=== PATIENT | female | born 1955 | race Caucasian/White ===

== ENCOUNTER 2016-08-29 06:33 | Day surgery (SDC) | payer MEDICARE, OTHER ==
[2016-08-29] VITALS (8 sets, daily range): BP systolic 99–132; BP diastolic 64–77; PULSE 58–126; RESP 14–17; O2SAT 91–100
[~2016-08-29] VITALS: Ht 175.3 cm; Wt 65.8 kg
[~2016-08-29 06:33] MED LIST: CELE200C PO; CHOL10008 PO; CITA40TA13 PO; Clindamycin 900 mg/50 mL D5W IV ONE; FURO-128 PO; Lactated Ringer's 1,000 ML IV SCH; MULT-1018 PO; NADO20TA PO
[2016-08-29] MEDS ORDERED: Propofol 10,000 mCg/mL 20 mL Inj ONE (06:34)
[2016-08-29] MEDS ORDERED: Dexamethasone 4 mg/mL Inj ONE (06:34)
[2016-08-29] MEDS ORDERED: Ondansetron 2 mg/mL 2 mL Inj ONE (06:34)
[2016-08-29] MEDS ORDERED: Ketamine 10 mg/mL 20 mL Inj ONE (06:34)
[2016-08-29] MEDS ORDERED: Clindamycin 900 mg/50 mL D5W Premix IV ONE (06:34)
[2016-08-29] MEDS ORDERED: fentaNYL-PF 50 mCg/mL 2 mL Inj ONE (06:34)
[2016-08-29] MEDS ORDERED: Lactated Ringer's 1,000 ML IV ONE (06:59)
--- NOTE | 2016-08-29 07:22 | PCM.HPANE ---
Patient Data Surgeon Admitting Provider: Attending Provider:Venu Day MD Primary Care Physician:Wan Stanley Other Provider:Tristen Connolly Anesthesia Reason for Visit Ruptured Implant Ht/WT & BMI Height (Feet): 5 Height (Inches): 9.00 Weight (Kilograms): 65.800 Body Mass Index 21.00 Allergies Coded Allergies: No Known Allergies (Unverified Allergy, Unknown, 09/11/15) Past Anesthesia History Anesthesia History: Denies:: Abnormal Airway, Anesthesia Reactions, Difficult Intubation Diabetes History Hx Diabetes?: No MRSA MRSA: No Medications Hypertension Medication: No Home Meds Incl Beta Chela: Yes (nADOLOL) Date Beta Chela Taken: Aug 29, 2016 Time Beta Chela Taken: 0545 Reported Medications Nadolol 20 Mg [id number] Mg PO DAILY 30 Days Ref 0 08/27/16 Furosemide (Lasix)40 Mg Ybuqcw62 Mg PO DAILY 30 Days Ref 0 08/27/16 Multivitamin (Multi Vitamin Daily)1 Each Tablet1 Each PO DAILY 30 Days Ref 0 08/27/16 Citalopram 40 Mg Pnijau90 Mg PO DAILY 30 Days Ref 0 08/27/16 Cholecalciferol (Vitamin D3) (Vitamin D3)1,000 Unit Tab.chew2,000 Unit PO DAILY 08/27/16 Celecoxib (Celebrex)200 Mg Aevheea006 Mg PO DAILY #30 CAPSULE Ref 0 08/27/16 Discontinued Reported Medications [Lisinopril] No Conflict Check10 Mg PO DAILY 04/14/12 [Verapamil] No Conflict [id number] Mg PO DAILY 04/14/12 Furosemide-Expunged Drug, Do Not Renew! (Lasix-Expunged Drug, Do Not Renew!)20 Mg Fjlaok86 Mg PO DAILY 04/14/12 [Promethazine] No Conflict Check25 Mg PO 1-2XD 04/14/12 ClonazePAM-Expunged Drug, Do Not Renew! 1 Mg Tablet1 Mg PO 1-2XD 04/14/12 Escitalopram-Expunged Drug, Do Not Renew! (Lexapro-Expunged Drug, Do Not Renew!) 20 Mg Zhsofc91 Mg PO BID 1/2 TABLET BID 04/14/12 [Percocet] No Conflict Check10 Mg PO Q4 04/14/12 [Flexaril] No Conflict Check10 Mg PO Q8 9/4/12 [Oxycondone] No Conflict Check30 Mg PO PRN 04/14/12 History HEENT History: Denies:: Abnormal Airway Cataracts Difficult Intubation Dysphagia Glaucoma Hearing Problem Sinus Problem TMJ Denture Type: Full- Upper Full- Lower Cardiovascular History: Denies:: AICD Abdominal Aortic Aneurism Chest Pain Congestive Heart Failure Coronary Artery Disease Edema Heart Murmur Hypertension Irregular Heartbeat Pacemaker Hx of Respiratory Problem?: No Respiratory History: Denies:: Asthma COPD Cough Emphysema Oxygen Administration Pneumonia Tuberculosis Use of C-PAP Machine (sleep study done no CPAP recommended) Use of Inhalers / NEBS Hx Neurologic Problems?: No Neurological History: Denies:: Alzheimer's Disease CVA Headaches Multiple Sclerosis Parkinson's Disease Seizures TIA Hx of GI Problems?: No Gastrointestinal History: Denies:: Cirrhosis Gastroesphageal Reflux Gastrointestinal Bleeding Heartburn Liver Disease Hx of Problems?: No Genitourinary History: Denies:: Kidney Stones Urinary Tract Infection Female Hx: Positive for:: Problems with Breasts? (bilateral ruptured implants , current admission problem) Denies:: Currently Skin History: Denies:: History Skin Disorders? Pressure Ulcers Hx Musculoskeletal Problems?: Yes Musculoskeletal History: Positive for:: Back Injury (hx of four spinal surgery ) Degenerative Joint Joint Replacement (bilateral knees) Osteoarthritis Denies:: Myasthenia Gravis Rheumatoid Arthritis Systemic Lupus Hx of Psycho/Social Problems?: Yes Psycho Social History: Positive for:: Anxiety Hx Depression Hx Surgeries?: Yes (spine surgeries, breast implants, knee replacement, sinus) Hx Any Other Health Problems?: Yes Other History: Denies:: Cancer Thyroid Disease History Blood Transfusions: Positive for:: Accept Blood Products? Denies:: Blood Transfuse Reaction Blood Transfusions Hx Diabetes: No Hx Alcohol Use: YesAlcoholic Drinks Per Day: one to two dailyHx Substance Use : NoHave You Smoked inLast 12 mo: Yes (quit 2002) Stop/Bang Treated for Sleep Apnea?: No Do You Have a CPAP Machine?: No S-Snoring: Do You Snore Loudly: No T-Tired: feel tired, fatigued: No O-Obsered: Observed not breath: No P-Blood Pressure: treated: No B- Body Mass Index > 35 kg/m2: No A- Age over 50: Yes N- Neck Large Circumference: No G- Gender Male: No KYMBERLY Total Score: 1 KYMBERLY Risk Assessment: Low Risk, <3 Yes Risk Assessment Category Category 1A: Patient has history of documented sleep apnea, and HAS NOT received any narcotic, sedative or anesthesia administration during this stay. Category 1B: Patient has history of documented sleep apnea, and HAS received any narcotic , sedative or anesthesia administration during this stay Category 2: Patient has SUSPECTED Obstructive Sleep Apnea, and HAS received any narcotic , sedative or anesthesia administration during this stay. Category 3: Patient has SUSPECTED Obstructive Sleep Apnea and HAS NOT received narcotic, sedative or anesthesia administration during this stay. Category 4: Outpatient in Procedural Areas with known sleep apnea or who screen positive for High Risk via the STOP/BANG questionnaire. Exam Exam Vital Signs Vital Signs Date Time Temp Pulse Resp B/P Pulse Ox O2 Delivery O2 Flow Rate FiO2 08/29/16 07:16 36.4 58 14 132/74 100 Room Air General Appearance: Alert, Oriented X3, Cooperative, No Acute Distress HEENT/AIRWAY: MP 2 Lungs: Clear to Auscultation, Normal Air Movement Heart: Exam Unremarkable, Regular Rate/Rhythm, No Murmurs/Rubs/Gallops Meds/Labs/Diagnostics Admission Meds Current Medications Lactated Ringer's (Lr) 1,000 ml @ ud STK-MED ONCE IV Last administered on 08/29t 06:59; Start 08/29/16 at 06:59; Stop 08/29/16 at 07:00; Status DC Plan Impression Patient chart reviewed, patient interviewed and anesthestic plan with risks, benefits, and alternatives discussed, and informed consent obtained. NPO Status: 08/28@2100, WATER W AM rX ASA Physical Status: ASA1 Normal Healthy Anesthetic Plan: GA Bene/Risks/Altern/Consents: Yes HP Complete Prior to Induction: Yes Jeffrey Bautista MD Aug 29, 2016 07:22
[2016-08-29] MEDS ORDERED: Lactated Ringer's 1,000 ML IV SCH (09:06)
[2016-08-29] MEDS ORDERED: Lactated Ringer's 500 ML IV PRN (09:06)
[2016-08-29] MEDS ORDERED: fentaNYL-PF 50 mCg/mL 2 mL Inj IVPUSH PRN (09:10)
[2016-08-29] MEDS ORDERED: Phenylephrine 10,000 mCg/mL Inj IVPUSH PRN (09:10)
[2016-08-29] MEDS ORDERED: MetoCLOpramide 5 mg/mL 2 mL Inj IVPUSH PRN (09:10)
[2016-08-29] MEDS ORDERED: HYDROmorphone 1 mg/mL Inj IVPUSH PRN (09:10)
[2016-08-29] MEDS ORDERED: EPHEDrine Sulfate 50 mg/mL Inj IVPUSH PRN (09:10)
[2016-08-29] MEDS ORDERED: Dexamethasone 4 mg/mL Inj IVPUSH PRN (09:10)
[2016-08-29] MEDS ORDERED: Ondansetron 2 mg/mL 2 mL Inj IVPUSH PRN (09:10)
[2016-08-29] MEDS ORDERED: Bacitracin 50,000 unit Inj IRRIGATION ONE (09:52)
[2016-08-29] MEDS ORDERED: oxyCODONE-Acetamin 10-325 mg Tablet PO PRN (12:25)
--- NOTE | 2016-08-29 13:33 | PCM.ANEP1 ---
Post Anesthesia Phase 1 PACU Phase 1 Assessment Vital Signs Vital Signs Date Time Temp Pulse Resp B/P Pulse Ox O2 Delivery O2 Flow Rate FiO2 08/29/16 13:30 36.4 58 16 103/68 96 Room Air 08/29/16 13:04 36.7 69 16 126/70 91 Room Air 08/29/16 12:45 126 17 126/73 96 Nasal Cannula 2 08/29/16 12:40 65 14 101/66 93 Nasal Cannula 4 08/29/16 12:35 70 15 99/77 95 Nasal Cannula 4 08/29/16 12:30 36.6 66 17 107/64 97 Nasal Cannula 4 08/29/16 07:16 36.4 58 14 132/74 100 Room Air Anesthetic Administered: GA Level of Alertness: Awake, talking GRAY's with Equal Strength: Yes Pain: No Nausea or Vomiting: No Lungs: Clear to Auscultation, Normal Air Movement Dermatome Level: Full Sensation Jeffrey Bautista MD Aug 29, 2016 13:33
--- NOTE | 2016-08-29 14:38 | PCM.ANEP2 ---
Post Anesthesia Evaluation ASA/CMS Post Anesthesia VS in Patient's Normal Range?: Yes Resp Stable; Airway Patent?: Yes CV Function & Hydration Stable: Yes Mental Status Recovered?: Yes Pain control Satisfactory?: Yes N/V Control Satisfactory?: Yes Jeffrey Bautista MD Aug 29, 2016 14:38
--- NOTE | 2016-09-03 06:41 | OP ---
[address] [address] OPERATIVE REPORT PATIENT: RADHA RODRIGUEZ : 1955 MR#: [id number] ADMIT: 08/29/2016 JOB ID: [id number] DATE OF SURGERY: 08/29/2016 SURGEON: Venu Day MD. PREOPERATIVE DIAGNOSIS(ES): 1. Right ruptured silicone breast implant. 2. Right capsular contracture. 3. Left capsular contracture. POSTOPERATIVE DIAGNOSIS(ES): 1. Right grade 4 capsular contracture. 2. Right ruptured silicone implant. 3. Left intact silicone implant. 4. Left capsular contracture. PROCEDURES: 1. Excision of right ruptured silicone implant with extracapsular silicone material. 2. Right capsulectomy. 3. Removal of left intact silicone implant. 4. Left periprosthetic capsulectomy. 5. Immediate placement of right saline implant after capsulectomy. 6. Immediate placement of left saline implant after left capsulectomy. BRUSH MAKER: None. ANESTHESIA: General anesthesia. ESTIMATED BLOOD LOSS: 20 cc. COMPLICATIONS: None apparent. IMPLANT: Bilateral Allergan style 68 moderate profile saline implant filled to 360 cc bilaterally. DRAINS: None. INDICATIONS FOR PROCEDURE: This is a 61-year-old female patient with a remote history of bilateral breast silicone prosthesis placement. Patient has documented rupture of both implants. Patient also has bilateral grade 4 capsular contracture. At this point, removal of bilateral implants as well as extracapsular silicone material and capsulectomy are indicated. The patient would like to have replacement of saline implants in a submuscular pocket. The procedures are indicated. PROCEDURE/FINDINGS: The patient was identified in the preoperative area. Surgical sites were marked. With the patient in a sitting position, I marked the patient's midline. Inframammary folds were also marked. The desired location of the inframammary incisions were also marked. Patient was then taken back to the operating room and placed supine on the operating table. Appropriate time-outs were taken. General anesthesia was induced smoothly. Patient was then prepped and draped in the usual sterile manner. I first turned my attention to the right breast. An inframammary incision was made that is approximately 8 cm in length. It started from approximately 1 cm medial to the breast meridian laterally. This was done with a #10 blade. I then deepened the incision down through the breast tissue down to the underlying periprosthetic capsule. The periprosthetic capsule was found to be thickened and calcified. I then proceeded to elevate the soft tissue off of the capsule. There are several areas of extracapsular silicone. These mostly form the small silicone granulomas. These were mostly around the inferior and lateral aspect of the capsule at the reflection of the anterior and posterior capsule. There is some extracapsular silicone at the superior surface. There is also a large area of capsular rupture and bulging at the inferomedial aspect of the capsule approximately at the four o'clock. I proceeded to elevate the soft tissue off of the capsule circumferentially. After approximately 75% of the capsule had been elevated and freed, I delivered the implant and the capsule through the incision down to the abdominal surface. This allowed me to access the superior aspect of the capsule. I then proceeded to elevate the soft tissue off of the capsule entirely. There is a silicone implant and the capsule was passed off to Pathology as a specimen. Hemostasis was obtained with electrocautery. The pocket was then irrigated with copious amounts of antibiotic solution. Once this had been done, I proceeded to use electrocautery to identify the lateral edge of the pectoralis major muscle. I then bluntly accessed the subpectoral plane. I then used electrocautery and blunt dissection to elevate the subpectoral plane all the way up to the clavicle. The inferior costal attachment of the pectoralis major muscle was then incised through with electrocautery. This allowed me to proceed with a dual-plane type of augmentation. Once this has been done, the skin flap and breast tissue was gently replaced back down to the surgical site. I used a marker to crescencio the lateral border of the pectoralis major muscle. Once this has been done, the corresponding location on the skin flap was also marked. Using several 3-0 Vicryl tjzhco-gi-pxbfc sutures, the lateral edge of the pectoralis major muscle was sutured to the underside of the breast tissue, essentially closing off of the subglandular pocket. Once this has been done. An Allergan style 68 moderate profile saline implant was obtained. Air was removed. A leak was checked. The implant was then filled to 60 cc. Again, excess air was removed as much as I can. The implant was then inserted into the subpectoral pocket. Once this has been done, several 3-0 Vicryl ppjqox-ny-gerbf sutures were then placed along the deep breast capsule superiorly and along the inframammary fold inferiorly. These were left untied. Once the sutures were placed, the implant was filled to 360 cc. The fill tube was removed and the valve was checked to make sure it was lying smoothly. The 3-0 Vicryl sutures were then tied down. A layer of 3-0 Vicryl simple interrupted sutures were then placed in the superficial subcutaneous tissue. A layer of 3-0 Monocryl deep dermal suture was then placed followed by 4-0 Monocryl running subcuticular suture. I then turned my attention to the left breast. Again, an 8 cm incision was made along the inframammary fold. Incision was made with a #10 blade and deepened down to the underlying periprosthetic capsule. It was noted that the capsule has some calcification but was overall quite thin. I was able to bluntly dissect the capsule off of the breast tissue almost entirely. There was no extracapsular rupture of the silicone. Once this has been done circumferentially, the implant and the capsule were removed from the surgical site and passed off Pathology as a specimen. Hemostasis was obtained with electrocautery. Again, the subpectoral plane was accessed 1st with electrocautery. A subpectoral pocket was then developed bluntly with finger dissection and sharply with electrocautery up to the level of the clavicle. The costal attachment of the pectoralis major muscle was divided 1 cm above the inframammary fold. Once this has been done, the pocket was rinsed with antibiotic solution. The lateral edge of the pectoralis major muscle was then sutured to the breast tissue closing off the subglandular pocket. An Allergan style 68 moderate profile implant was then obtained. Air was removed. It was then filled to 60 cc and placed into the subpectoral pocket. Several 3-0 Vicryl joncki-fx-qepwj sutures were then placed from the deep breast capsule to the inframammary fold. Once these had been placed and left untied, the implant was filled to 360 cc. The fill tube was removed. The valve was checked and was found to be seated correctly. The Vicryl sutures were then tied down. A layer of 3-0 Vicryl simple interrupted sutures were then placed in the subcutaneous tissue. A layer of 3-0 Monocryl deep dermal sutures were placed, followed by 4-0 Monocryl running subcuticular suture. The patient tolerated the procedure well. Needle count, sponge count, instrument counts were correct at the end of the procedure. Patient was extubated and transported to recovery in stable condition. JENNY
--- NOTE | 2016-09-03 11:39 | PATH ---
SURGICAL PATHOLOGY Attending Physician:Venu Day CASE STATUS: Signed Out PATIENT NAME: RADHA RODRIGUEZ PID: [id number] : 1955 DATE COLLECTED:08/29/2016 21:01 SPECIMEN: 1: Breast, Implant 2: Breast, Implant CLINICAL HISTORY: BILATERAL RUPTURED SILICONE IMPLANTS AND BILATERAL CAPSULE CONTRACTURE 1). RIGHT RUPTURED SILICONE IMPLANT AND CAPSULE 2). LEFT RUPTURED SILICONE IMPLANT AND CAPSULE FINAL DIAGNOSIS: 1. Right Breast Silicone Implant with Fibrous Capsule, Focally Calcified. 2. Left Breast Silicone Implant with Fibrous Capsule, Focally Calcified. ICD10: [id number] GROSS DESCRIPTION: The specimens are received in formalin, labeled with the patient's name, and sublabeled as the following: (1) right ruptured silicon breast implant + capsule; (2) not sublabeled. (1) The specimen consists of a breast implant which includes a clear plastic silicone filled breast implant encased in fibrous breast capsule (321 g, 12.5 x 10.5 x 4.7 cm). A scant amount of adipose tissue is present. The implant is ruptured. The implant does not contain any identifying features. The capsule is diffusely mineralized weight focal thinning. No nodules, masses or lesions are identified. Section code: (1A, 1B) breast capsule, help desk representative. (2) the specimen consists of an intact clear plastic silicone filled breast implant (300 g, 13.0 x 13.0 x 2.0 cm) and a separate fibrous breast capsule (22.3 grams, and 9.5 x 6.8 x 1.5 cm). A scant amount of adipose tissue is present. The implant does not contain any identifying features. The capsule is diffusely thin and focally mineralized. No nodules, masses or lesions are identified. Section code: (2A, 2B) breast capsule, represented. 08/31/16 ICD-9 CODES: CPT CODES: 37366, 65347 Electronically Signed Out José Em MD [facility] [address], [place] [address] Technical component performed at [facility], [address] [place] [address] [address], [place], [address]
== END 2016-08-29 23:59 | disposition home or self-care (01) ==
LOC: SAS 06:33
PROVIDERS: ATTEND Plastic Surgery
DX: T85.44XS Capsular contracture of breast implant, sequela (principal); T85.49XS Other mechanical complication of breast prosthesis and implant, sequela; I10 Essential (primary) hypertension; G89.29 Other chronic pain; M54.5 Low back pain
CPT/HCPCS: 19340; 19371; J1100; J1170; J2250; J2405; J7120

== ENCOUNTER 2016-12-07 22:34 | Emergency (ER) | payer MEDICARE, OTHER ==
[~2016-12-07] VITALS: Ht 175.3 cm; Wt 68.2 kg
[~2016-12-07 22:34] MED LIST changes: -Clindamycin 900 mg/50 mL D5W IV ONE; -Lactated Ringer's 1,000 ML IV SCH
[2016-12-07 22:47] VITALS: BP 149/96; PULSE 86; RESP 18; O2SAT 92
--- NOTE | 2016-12-07 23:40 | ED.REPORT ---
HPI-General Illness Date of Service Dec 07, 2016 ED Provider: Maulik Sullivan MD Patient is a 61 year old female with a history of hypertension and depression on Citalopram who presents to the ED via EMS after she experienced jaw tightening at 6pm this evening. The patient states that she was out to dinner when the symptoms started. Her jaw became tighter and tighter after symptoms onset and she was unable to unclench it. When she got home she noticed that her jaw appeared clenched on the right side. Her pain is now resolved. Patient admits to drinking alcohol with dinner tonight. EMS also found her blood pressure to be 200/112 on arrival. She was found to be at 92% on room air and was placed on a nasal cannulae, appearing to have difficulty breathing. Patient denies a history of COPD, emphysema, shortness of breath, or chest pain. She states that her mother several months ago. She is a former smoker. The patient admits to recently trying CBD oil for the first time last week, but has not used in the past 3 days. She has not recently changed any of her other medications. Nursing Notes Stated Complaint: HIGH BLOOD PRESSURE, CLENCHED JAW Chief Complaint: General Complaint Nursing Notes Reviewed: Yes Allergies: Coded Allergies: No Known Allergies (Unverified Allergy, Unknown, 12/07/16) Scheduled Celecoxib (Celebrex) 200 Mg Capsule 200 MG PO DAILY Cholecalciferol (Vitamin D3) (Vitamin D3) 1,000 Unit Tab.chew 2,000 UNIT PO DAILY Citalopram (Citalopram) 40 Mg Tablet 40 MG PO DAILY Furosemide (Lasix) 40 Mg Tablet 40 MG PO DAILY Multivitamin (Multi Vitamin Daily) 1 Each Tablet 1 EACH PO DAILY Nadolol (Nadolol) 20 Mg Tablet 20 MG PO DAILY General Time Seen by : 22:59 Chief Complaint Other (jaw pain) Hx Obtained From: Patient Arrived By: Ambulance Sudden in Onset?: Yes Onset Occurred: 5 - 8 hours ago Symptom Duration: Since onset Location: : Face (jaw pain) Severity: Current: No pain currently Severity: Maximum: Moderate Recent Healthcare: No recent doctor visit, No recent hospitalization Similar Sx Previous: No Past Medical History Past Medical History Anxiety Depression Osteoarthritis Degenerative Joint Disease Reports: Hypertension, Denies: COPD Past Surgical History breast implants knee replacements sinus surgery Reports: Back/neck surgery Smoking History Former Smoker Social History Alcohol Use: "Social" Other Social History: Good social support, , Local resident Ambulatory Status Independent Review of Systems +jaw pain Full Review of Systems Respiratory: Denies: Non-productive cough, Shortness of breath Cardiovascular: Denies: Chest pain, Palpitations Complete sys rev & neg: except as marked. Physical Exam Vital Signs Vital Signs Date Time Temp Pulse Resp B/P Pulse Ox O2 Delivery O2 Flow Rate FiO2 12/08/16 00:32 72 16 139/93 92 Room Air 12/07/16 22:47 36.9 86 18 149/96 92 Room Air Initial VS: Reviewed, Vital signs abnormal Skin: Warm, Dry, No cyanosis Psychiatric: Mood/affect normal, Behavior normal, Normal thought content General/Constitutional: Awake, Alert, No acute distress Head / Eyes: Normocephalic, PERRL, EOMI ENT: Airway patent hoarse voice Neck: Supple, Full range of motion, Non-tender Respiratory / Chest: Breath sounds NL, Breath sounds = bilat, No respiratory distress, No rales, No rhonchi, No wheezing Cardiovascular: Heart rate NL, Regular rhythm, Heart sounds NL, No murmurs Upper Extremities Upper Extremity / MS: Full range of motion, No deformity, Neurologic intact, Vascular intact Lower Extremity / Pelvis / MS: Full range of motion, No deformity, Neurologic intact, Vascular intact Neurologic: Oriented X3, Speech NL, No motor deficits, No sensory deficits No current dystonic abnormalities or other abnormal movements. Interpretation & Diagnostics ECG Interpretation ECG Interpretation: Sinus rhythm, Rate 70 Probable left ventr hypertrophy Time: 22:48 Re-Eval/Medical Decision Med Decision/Clinical Course 61-year-old female with an episode of jaw dystonia likely secondary to citalopram. Recommend Benadryl as needed for recurrent symptoms and gradual taper off citalopram directed by primary physician. Source of Hx: Old records Time of Eval: 23:47 Re-Evaluation/Progress Note: Spoke with the patient further about her medications. Citalopram has been known to cause jaw tightening. She will need to taper off her medication. Time of Eval: 00:05 Patient Status: Condition improved Re-Evaluation/Progress Note: Patient understands and agrees with the plan to be discharged home. Discharge instructions and follow-up discussed. All questions were addressed. Return to the ED warnings given. Counseled Regarding: Diagnosis, Need for follow-up, When/why to return to ED Discharge & Departure Primary Impression: Dystonia Additional Impression: Adverse drug effect Encounter type: initial encounter Qualified Code: T88.7XXA - Unspecified adverse effect of drug or medicament, initial encounter Disposition: Home Discharge Condition All VS Reviewed: Yes Condition: Stable Patient Instructions: Citalopram (By mouth) Additional Instructions: The jaw tightness that you had is called dystonia and it was likely due to your citalopram. Recommend that you taper off the citalopram by 20 mg every 2 weeks. Your dose for tomorrow should be 60 mg. Talk to your prescribing provider about that plan. If you have recurring jaw symptoms use diphenhydramine (Benadryl) 25-50 mg. Call me at [phone] between the hours of 9 PM and 6 AM for the next couple of nights if you have any concerns. Referrals: Darius Barreto Attestation Portions of this note were transcribed by Parris Blevins. I, Dr. Sullivan personally performed the history, physical exam and medical decision-making; I reviewed and confirmed the accuracy of the information in the transcribed note. Signed by: Dilan Givens, 12/08/2016 0010 copies to: Darius Barreto Howard L MD Dec 07, 2016 23:40 Parris Blevins Dec 07, 2016 23:48
[2016-12-08 00:32] VITALS: BP 139/93; PULSE 72; RESP 16; O2SAT 92
== END 2016-12-08 00:31 | disposition home or self-care (01) ==
LOC: SED 22:34
DX: G24.09 Other drug induced dystonia (principal); R68.84 Jaw pain; T43.225A Adverse effect of selective serotonin reuptake inhibitors, initial encounter; Y93.89 Activity, other specified; Y92.89 Other specified places as the place of occurrence of the external cause; Y99.8 Other external cause status; F10.129 Alcohol abuse with intoxication, unspecified; I10 Essential (primary) hypertension; Z87.891 Personal history of nicotine dependence

== ENCOUNTER 2017-02-10 11:16 | Day surgery (SDC) | payer MEDICARE ==
[~2017-02-10] VITALS: Ht 175.3 cm; Wt 68.0 kg
[~2017-02-10 11:16] MED LIST changes: +0.9% Sodium Chloride 1,000 ML IV SCH; +LACT10SO PO; +MONT10TA23 PO; -MULT-1018 PO; +Sodium Chloride LOK Flush 10 mL Syringe IV PRN; +fentaNYL-PF 50 mCg/mL 2 mL Inj IVPUSH PRN
[2017-02-10 11:58] VITALS: BP 121/84; PULSE 65; RESP 16; O2SAT 96
--- NOTE | 2017-02-10 13:43 | PCM.ENDEGD ---
EGD Date of Service: Feb 10, 2017 Physician Haseeb Barger MD Pre Procedure Diagnosis: Abdominal pain Post Procedure Dx & Findings: Esophagitis gastritis Procedure Esophagogastroduodenoscopy PROCEDURE IN DETAIL: After proper sedation, Olympus video endoscope was inserted into patient's mouth and esophagus was successfully intubated. Scope introduced esophagus. Esophagus showed normal shiny whitish mucosa consistent with squamous cell component. Z line was at 40 cm from the incisors. The Z line was irregular with some scarring consistent with prior ulcer. Biopsies done. One biopsy site has persistent oozing of blood. One clip Deployed and complete hemostasis stasis achieved. Scope further advanced to the stomach. The stomach especially antrum showed redness atrophy consistent with gastritis. Biopsies done.. Cardia fundus body antrum pylorus were all visualized. Retroflexion was done. Stomach was easily inflated and deflatable using air. Scope further events to the distal duodenum. Duodenum revealed normal villous structures with normal appearing folds without any mass ulcer erosion. Impression Esophagitis Gastritis Recommendation Stop all NSAIDs Prilosec Presedation Assessment Risks and Benefits Informed consent was obtained from the patient after all risks and benefits including but not limited to drug reaction, infection, pain, bleeding, perforation, as well as alternatives were discussed. Patient monitoring Continuous pulse oximetry, cardiac monitoring, blood pressure monitoring, IV access, and oxygen at 2L per nasal cannula. Periprocedural Fentanyl: Fentanyl 200mcg Incrementally Midazolam: Midazolam 10mg Incrementally Complications There were no periprocedural complications identified. Post Procedure Plan Post Procedure Recommendations 1. Restrict activities today. 2. Resume normal activities in the morning. 3. Resume medications. 4. GERD behavioral modification: - Avoid fatty, acidic, spicy, large meals - Do not lie down after meals - Do not eat or drink anything for at least 2 1/2 hours before going to bed at night - Discontinue tobacco and alcohol - Decrease or avoid caffeine - Avoid chocolate and mints - Decrease weight - Avoid aspirin and non steroidal anti-inflammatory agents (NSAID) such as Aleve, Advil, Mobic, Naproxen, Ibuprofen, etc 5. Add proton pump inhibitor. Take 30 minutes before 1st meal of the day. 6. Patient informed of normal post procedure side effects as bloating, drowsiness, blood streaking in the stool 7. If gastric biopsy reveal H.pylori, continue with appropriate treatment 8. If small bowel biopsy reveals celiac, continue with appropriate treatment 9. Please don't hesitate to call me with any questions Haseeb Barger MD Feb 10, 2017 13:43
[2017-02-10 13:45] VITALS: BP 118/71; PULSE 71; RESP 15; O2SAT 99
--- NOTE | 2017-02-10 13:45 | PCM.ENDCOL ---
Colonoscopy Date of Service: Feb 10, 2017 Physician Haseeb Barger MD Pre Procedure Diagnosis: Screening Post Procedure Dx & Findings: Polyp hemorrhoids and diverticula Procedure Colonoscopy PROCEDURE IN DETAIL: Prep fair Withdrawal time 12 minutes After unremarkable rectal examination the Olympus video colonoscope was inserted patient's anal canal and was advanced to cecum. Landmarks were identified including the ileocecal valve and appendiceal orifice. Scope was withdrawn systematically. Visualized colonic mucosa showed healthy shiny mucosa with normal healthy-appearing vasculature. In the ascending colon there was a 3 mm polyp which was removed completely using cold snare. In the transverse colon there were portal for polyps polyps. 3 of the polyps are about 3 mm in size which were resected completely using cold snare. One of the polyp was 1 mm in size which was removed completely using cold forceps. In the sigmoid colon there were several small diverticuli. In the rectum retroflexion was done which showed hemorrhoids. Anal canal was inspected carefully on the way out and hemorrhoids noted. Impression Polyp 5 status post complete removal Diverticuli Hemorrhoids Recommendation Repeat colonoscopy in 2 years with a 2 day prep Diverticular diet Presedation Assessment Risks and Benefits Informed consent was obtained from the patient after all risks and benefits including but not limited to drug reaction, infection, pain, bleeding, perforation, as well as alternatives were discussed. Patient monitoring Continuous pulse oximetry, cardiac monitoring, blood pressure monitoring, IV access, and oxygen at 2L per nasal cannula. Complications There were no periprocedural complications identified. Post Procedure Plan Post Procedure Recommendations 1. Restrict activities today. 2. Resume normal activities in the morning. 3. Resume medications. 4. Patient informed of normal post procedure side effects as bloating, drowsiness, blood streaking in the stool. 5. average risk CRCS. If colon polyps come back as: -Hyperplastic- can repeat colonoscopy in 10 years -Tubular adenoma- repeat colonoscopy in 5 years -Tubulovillous/villous adenoma- repeat colonoscopy in 3 years -If any dysplasia- return to clinic as soon as possible 6. Please don't hesitate to call me with any questions. Haseeb Barger MD Feb 10, 2017 13:45
[2017-02-10 13:55] VITALS: BP 128/73; PULSE 67; RESP 15; O2SAT 100
--- NOTE | 2017-02-12 16:45 | PATH ---
SURGICAL PATHOLOGY Attending Physician:Haseeb Barger M.D. CASE STATUS: Signed Out PATIENT NAME: RADHA RODRIGUEZ PID: [id number] : 1955 DATE COLLECTED:02/10/2017 00:00 SPECIMEN: 1: Gastric, Biopsy 2: Esophagus, Biopsy 3: Colon, Polyp 4: Colon, Polyp CLINICAL HISTORY: ABDOMINAL PAIN 1). GASTRIC BIOPSY 2). DISTAL ESOPHAGUS BIOPSY 3). ASCENDING COLON POLYP X1 4). TRANSVERSE COLON POLYPS X4 FINAL DIAGNOSIS: 1.GASTRIC BIOPSY: MILD CHRONIC GASTRITIS INVOLVING ANTRAL MUCOSA. Negative for evidence of Helicobacter on H&E stain. Positive for intestinal metaplasia. Negative for dysplasia and malignancy. 2.DISTAL ESOPHAGUS BIOPSY: SQUAMOUS AND GASTRIC CARDIA-TYPE MUCOSA POSITIVE FOR SPECIALIZED METAPLASIA OF CLEMENTE' S-TYPE ESOPHAGUS. Negative for dysplasia and malignancy. Negative for squamous intraepithelial eosinophils. 3.ASCENDING COLON POLYP: TUBULAR ADENOMA INVOLVING ALL BIOPSY FRAGMENTS. 4.TRANSVERSE COLON POLYPS: TUBULAR ADENOMA INVOLVING SINGLE BIOPSY FRAGMENT. POLYPOID-SHAPED FRAGMENTS OF COLON MUCOSA ASSOCIATED WITH PROMINENT LYMPHOID AGGREGATES INVOLVING TWO BIOPSY FRAGMENTS. ICD10 K22.7 GROSS DESCRIPTION: 1. Received in formalin, labeled with the patient's name and "gastric biopsy" are four fragments of pittman soft tissue ranging from 0.1 x 0.1 x 0.1 cm to 0.5 x 0.2 x 0.2 cm. Fragments are totally submitted in cassette 1A. 2. Received in formalin, labeled with the patient's name and "distal esophagus biopsy" are three fragments of pittman soft tissue ranging from 0.2 x 0.1 x 0.1 cm to 0.3 x 0.1 x 0.1 cm. Fragments are totally submitted in cassette 2A. 3. Received in formalin, labeled with the patient's name and "ascending colon polyp" are two fragments of pittman soft tissue ranging from 0.3 x 0.2 x 0.2 cm to 0.4 x 0.2 x 0.2 cm. The fragments are totally submitted in cassette 3A. 4. Received in formalin, labeled with the patient's name and "transverse colon polyps" are three fragments of pittman soft tissue ranging from 0.4 x 0.2 x 0.2 cm to 0.6 x 0.3 x 0.2 cm. The fragments are totally submitted in cassette 4A. [id number]) MICRO DESCRIPTION: See diagnosis. ICD-9 CODES: CPT CODES: 1: 13339 2: 70692 3: 69908 4: 84881 Electronically Signed Out José Em MD [facility] [address], [place] [address] Technical component performed at [facility], [facility] [address], [place], [address]
== END 2017-02-10 23:59 | disposition home or self-care (01) ==
LOC: END 11:16
PROVIDERS: ATTEND Internal Medicine
DX: Z12.11 Encounter for screening for malignant neoplasm of colon (principal); D12.2 Benign neoplasm of ascending colon; D12.3 Benign neoplasm of transverse colon; K57.30 Diverticulosis of large intestine without perforation or abscess without bleeding; K64.8 Other hemorrhoids; K22.70 Barrett's esophagus without dysplasia; K29.50 Unspecified chronic gastritis without bleeding; I10 Essential (primary) hypertension; F41.8 Other specified anxiety disorders; G47.9 Sleep disorder, unspecified
CPT/HCPCS: 43239; 45385; 99153; G0500; J2250; J3010; J7030